=== PATIENT | male | born 1970 | race Caucasian/White ===

== ENCOUNTER 2018-06-06 20:24 | Emergency (ER) | payer SELFPAY ==
[~2018-06-06] VITALS: Ht 203.2 cm; Wt 72.7 kg
[~2018-06-06 20:24] MED LIST: METO50 PO; SIMV-261 PO
[2018-06-06] MEDS ORDERED: KETOROLAC TROMETHAMINE 30 MG/ML VIAL IM ONE (22:15)
[2018-06-06 22:24] VITALS: BP 145/89
== END 2018-06-06 22:32 | disposition home or self-care (01) ==
LOC: EMS 20:25
DX: S46.811A Strain of other muscles, fascia and tendons at shoulder and upper arm level, right arm, initial encounter (principal); I10 Essential (primary) hypertension; E78.00 Pure hypercholesterolemia, unspecified; X50.0XXA Overexertion from strenuous movement or load, initial encounter; Y93.89 Activity, other specified; Y92.89 Other specified places as the place of occurrence of the external cause; Y99.8 Other external cause status
CPT/HCPCS: 29105; 73000; 96372; 99283; J1885

== ENCOUNTER 2019-03-10 14:46 | Emergency (ER) | payer MEDICAID ==
[~2019-03-10] VITALS: Ht 167.6 cm; Wt 72.7 kg
[2019-03-10 15:21] VITALS: BP 128/80
[2019-03-10] MEDS ORDERED: IBUPROFEN 400 MG TABLET PO ONE (15:30)
== END 2019-03-10 16:16 | disposition home or self-care (01) ==
LOC: EMS 14:47
DX: M72.2 Plantar fascial fibromatosis (principal); I10 Essential (primary) hypertension; E78.00 Pure hypercholesterolemia, unspecified; Z87.891 Personal history of nicotine dependence

== ENCOUNTER 2022-02-14 08:49 | Emergency (ER) | payer MEDICAID ==
[~2022-02-14] VITALS: Ht 177.8 cm; Wt 68.2 kg
[2022-02-14] MEDS ORDERED: LIDOCAINE 1% 20 ML VIAL SQ ONE (09:15)
[2022-02-14] MEDS ORDERED: PERTUSS(ACELL),DIPH,TET VAC/PF 0.5 ML SYRINGE IM. ONE (13:45)
[2022-02-14 14:36] VITALS: BP 129/78
== END 2022-02-14 14:37 | disposition home or self-care (01) ==
LOC: EMS 08:58
DX: S61.210A Laceration without foreign body of right index finger without damage to nail, initial encounter (principal); S61.212A Laceration without foreign body of right middle finger without damage to nail, initial encounter; S61.214A Laceration without foreign body of right ring finger without damage to nail, initial encounter; S61.217A Laceration without foreign body of left little finger without damage to nail, initial encounter; E78.00 Pure hypercholesterolemia, unspecified; I10 Essential (primary) hypertension; Z87.891 Personal history of nicotine dependence; Z98.890 Other specified postprocedural states; W26.8XXA Contact with other sharp object(s), not elsewhere classified, initial encounter; Y93.89 Activity, other specified; Y92.89 Other specified places as the place of occurrence of the external cause; Y99.8 Other external cause status
CPT/HCPCS: 99283; 90715; 90471; 12002; J3490

== ENCOUNTER 2022-02-21 09:56 | Emergency (ER) | payer MEDICAID ==
[~2022-02-21] VITALS: Ht 175.3 cm; Wt 72.7 kg
[2022-02-21] MEDS ORDERED: BACITRACIN 0.9 GM PACKET OINTMENT TP ONE (10:30)
[2022-02-21] MEDS ORDERED: BACI28OI29 TP (10:40)
[2022-02-21 11:05] VITALS: BP 149/93
== END 2022-02-21 11:18 | disposition home or self-care (01) ==
LOC: EMS 10:01
DX: S61.219D Laceration without foreign body of unspecified finger without damage to nail, subsequent encounter (principal); E78.00 Pure hypercholesterolemia, unspecified; I10 Essential (primary) hypertension; Z98.890 Other specified postprocedural states; Z48.01 Encounter for change or removal of surgical wound dressing; Z87.891 Personal history of nicotine dependence; X58.XXXD Exposure to other specified factors, subsequent encounter
CPT/HCPCS: 99282; Z7502; Z7610